=== PATIENT | female | born 1995 | race Caucasian/White ===

== ENCOUNTER → 2021-06-04 | Outpatient (CLI) | payer OTHER | LOC: CARD 14:00 | PROVIDERS: ATTEND Internal Medicine Cardiovascular Disease | DX: O99.419 Diseases of the circulatory system complicating pregnancy, unspecified trimester (principal); O35.8XX2 Maternal care for other (suspected) fetal abnormality and damage, fetus 2; Z3A.00 Weeks of gestation of pregnancy not specified | CPT/HCPCS: 93306 ==